=== PATIENT | female | born 1990 | race Caucasian/White ===

== ENCOUNTER → 2022-12-16 | Outpatient (CLI) | payer BC | LOC: DIA.ED 09:02 | DX: O24.419 Gestational diabetes mellitus in pregnancy, unspecified control (principal) | CPT/HCPCS: G0108 ==

== ENCOUNTER 2023-02-18 08:20 | Inpatient (IN) | payer BC, MEDICAID ==
[2023-02-18] VITALS (27 sets, daily range): BP systolic 57–136; BP diastolic 51–79; PULSE 50–80; TEMP 97.9–98.8
[~2023-02-18] VITALS: Ht 162.6 cm; Wt 89.5 kg
[~2023-02-18 08:20] MED LIST: EFFEXOR 75M75 MG/TAB PO
--- NOTE | 2023-02-18 09:30 | NUR ---
PT AMBULATORY TO UNIT WITH SISTER AND DAUGHTER. PT ORIENTED TO ROOM AND PLAN OF CARE. PT DENIES FEELING CTX, NO LOF, NO VAGINAL BLEEDING OR SPOTTING, AND POSITIVE MOVEMENT. EFM CAT 1, PT VS STABLE. FOB NOT INCLUDED IN CARE PLAN PER MOM REPORT.
[2023-02-18 10:36] LABS: BASO % 0.2 % (0.0-2.0); EOS # 0.1 K/mm3 (0.0-0.7); EOS % 1.3 % (0.0-4.0); GRAN # 4.2 K/mm3 (1.4-6.5); GRAN % 65.6 % (42.2-75.2); LYMPH # 1.4 K/mm3 (1.2-3.4); LYMPH % 22.7 % (20.0-51.0); MEAN CELL VOLUME 81 fl (80.0-100.0); MEAN CORPUSCULAR HEMOGLOBIN 26 pg (27-31); MEAN CORPUSCULAR HGB CONC 32 g/dl (33.0-37.0); MEAN PLATELET VOLUME 11.3 fl (7.4-10.4); MONO # 0.6 K/mm3 (0.1-0.6); MONO % 9.9 % (1.7-9.3); PLATELET COUNT 193 K/mm3 (130-400); RED BLOOD COUNT 4.27 M/mm3 (4.10-5.30); REDCELL DISTRIBUTION WIDTH-CV 15.8 % (11.5-14.5)
[2023-02-18 10:38] LABS: HEMATOCRIT 34.6 % (37.0-47.0)
--- NOTE | 2023-02-18 13:24 | NUR ---
1310 LARS INSPECTOR PURCHASED PARTS AT BEDSIDE, EDUCATING PT ABOUT EPIDURAL PLACEMENT AND ANSWERING QUESTIONS. PT SITTING ON EDGE OF BED, UNABLE TO TRACE EFM AND TOCO DUE TO MATERNAL POSITION AND HABITUS. PT VS STABLE. THIS RN HEARS AUDIBLE FHR AROUND 130'S. SISTER AND DAUGHTER SUPPORTIVE AT BEDSIDE. 1324 TEST DOSE ADMINISTERED PER LARS INSPECTOR PURCHASED PARTS. EFM AND TOCO UNABLE TO TRACE DUE TO MATERNAL POSITION, THIS RN HEARS FHR AROUND 130'S AND PALPATES CTX Q 2-3MIN. 1330 PT REPOSITIONED WL, EFM TRACING CAT 1, PT VS STABLE.
--- NOTE | 2023-02-18 15:13 | NUR ---
1500 PT REPORTS FEELING "ALOT OF LOWER PRESSURE."SVE PER , /+2. NOTIFIED, ROOM SET FOR DELIVERY, CHARGE NURSE AND NURSERY NOTIFIED. PT REPOSITIONED IN STIRRUPS AND EDUCATED PER THIS RN ABOUT PUSHING. 1505 PARSON DISCONTINUED PER THIS RN. PT VS STABLE, FHR BASELINE 130'S, ACCELS, RECURRENT EARLY DECELS, CTX Q 2-3MIN. 1510 AT BEDSIDE, PT BEGINS PUSHING. DAUGHTER SUPPORTIVE AT BEDSIDE. 1513 OF VIABLE MALE , NUCHAL CORD X1, MEC STAINED FLUID. NURSERY ASSUMED CARE OF BABY, BEGINS 1ST DEGREE TEAR REPAIR. PT VS STABLE, FUNDUS FIRM AT THE UMBILICUS, SCANT AMOUNT OF LOCHIA. DELAY CORD CLAMPING PER MOM REQUEST. 1519 OF PLACENTA. PT VS STABLE, FUNDUS FIRM AT UMBILICUS, SCANT AMOUNT LOCHIA. ROOM SET BACK AFTER DELIVERY, PT REPOSITIONED COMFORTABLY, ICE PAD TO PERINEUM. BABY REMAINS IN ROOM WITH MOM WITH DAUGHTER SUPPORTIVE AT BEDSIDE.
[2023-02-19 03:30] VITALS: BP 105/53; BP_SYST 53; PULSE 58; TEMP 97.8
[2023-02-19 06:36] VITALS: BP 116/64; PULSE 78; TEMP 98
[2023-02-19] MEDS ORDERED: MOTRIN 800800 MG/TAB PO (09:49)
--- NOTE | 2023-02-19 18:55 | NUR ---
1854- PT CALLS OUT THAT SHE IS READY FOR DISMISSAL. DISMISSAL INSTRUCTIONS AND BANDS CUT BY PREVIOUS NURSE. PT DENIES FURTHER NEEDS. PT AND BABY ACCOMPANIED BY NURSE TO HOSPITAL EXIT. BELONGINGS WITH PT.
== END 2023-02-19 18:55 | disposition home or self-care (01) | DRG 807 ==
LOC: OB 08:20 → LDR 09:33 → OB 16:48
PROVIDERS: ADMIT Obstetrics & Gynecology
PROC: 10E0XZZ Delivery of Products of Conception, External Approach (ICD-10-PCS; principal; 2023-02-18)
PROC: 3E033VJ Introduction of Other Hormone into Peripheral Vein, Percutaneous Approach (ICD-10-PCS; 2023-02-18)
PROC: 10907ZC Drainage of Amniotic Fluid, Therapeutic from Products of Conception, Via Natural or Artificial Opening (ICD-10-PCS; 2023-02-18)
PROC: 0HQ9XZZ Repair Perineum Skin, External Approach (ICD-10-PCS; 2023-02-18)
DX: O24.420 Gestational diabetes mellitus in childbirth, diet controlled (principal); Z37.0 Single live birth; O99.344 Other mental disorders complicating childbirth; F41.9 Anxiety disorder, unspecified; F31.9 Bipolar disorder, unspecified; O77.0 Labor and delivery complicated by meconium in amniotic fluid; O99.214 Obesity complicating childbirth; D64.9 Anemia, unspecified; O99.02 Anemia complicating childbirth; Z3A.39 39 weeks gestation of pregnancy; O69.81X0 Labor and delivery complicated by cord around neck, without compression, not applicable or unspecified; O70.9 Perineal laceration during delivery, unspecified
CPT/HCPCS: J2590; J2795; J7120